=== PATIENT | male | born 1970 | race Caucasian/White ===

== ENCOUNTER 2020-02-26 20:03 | Emergency (ER) | payer OTHER, SELFPAY ==
[2020-02-26 20:04] VITALS: BP 115/73; PULSE 76; RESP 20; TEMP 36.9; O2SAT 98
--- NOTE | 2020-02-26 20:47 | ED.SKABFB ---
HPI - Skin/Abscess/Foreign Bdy General Chief complaint: Skin/Abscess/Foreign Body Stated complaint: lump on neck Time Seen by Provider: 02/26/20 20:26 Source: patient Mode of arrival: ambulatory Limitations: no limitations History of Present Illness HPI narrative: This is a 49 year old male that presents to the ER for redness to left side of neck noticed this afternoon. Reports an area of redness and swelling to the left side of the neck. Reports pain to the area. Denies fever or drainage. Related Data Allergies Allergy/AdvReac Type Severity Reaction Status Date / Time morphine Allergy Intermediate Other Verified 02/26/20 20:07 sulfamethoxazole Allergy Intermediate Itching Verified 02/26/20 20:07 trimethoprim Allergy Intermediate Itching Verified 02/26/20 20:07 Review of Systems Review of Systems: Narrative: CONSTITUTIONAL: Denies fever SKIN: Reports rash. Denies itching. All systems reviewed & are unremarkable except as noted in HPI and below PMFSH Past Medical History Medical History (Updated 02/26/20 @ 21:05 by Susie Romero PA-C) History of coronary artery disease History of hyperlipidemia Exam Narrative: Exam Narrative: GENERAL: Well-appearing, well-nourished, and in no acute distress. HEAD: Normocephalic, atraumatic. EYES: EOMI. NECK: Supple. No adenopathy or masses. Left side at base of neck with small (2cm circumference) raised area of erythema. No lymphangitic streaking CHEST: Clear to auscultation. No respiratory distress. No wheezes rales or rhonchi HEART: Regular rate and rhythm. No murmur heard. Normal peripheral pulses. EXTREMITIES: Normal range of motion. No edema. SKIN: Warm, dry, no rash. NEURO: No focal deficits. Alert and oriented x3. PSYCH: Normal mood and affect Course Vital Signs Vital signs: Vital Signs Temperature 98.4 F 02/26/20 20:04 Pulse Rate 76 02/26/20 20:04 Respiratory Rate 20 02/26/20 20:04 Blood Pressure 115/73 02/26/20 20:04 Pulse Oximetry 98 02/26/20 20:04 Temperature 98.4 F 02/26/20 20:04 Pulse Rate 76 02/26/20 20:04 Respiratory Rate 20 02/26/20 20:04 Blood Pressure 115/73 02/26/20 20:04 Pulse Oximetry 98 02/26/20 20:04 MDM - Skin/Abscess/Foreign Bdy MDM Narrative Medical decision making narrative: Patient presents to the ER for small area of possible cellulitis to the left side of the neck. Patient is afebrile and nontoxic-appearing. Will be started on oral antibiotics. Is to follow up with his PCP. Was given warnings to return to the ER Critical Care Time Critical Care Time Critical Care Time: No Discharge Plan Discharge Clinical Impression: Cellulitis Qualifiers: Site of cellulitis: head Qualified Code(s): L03.811 - Cellulitis of head [any part, except face] Patient Disposition: Home, Self-Care Condition: Stable Instructions: Antibiotic Form, Cellulitis (ED) Additional Instructions: Return if symptoms worsen or concerns: any increase in redness, swelling, pain, or fever over 101 Take antibiotics as directed. Clean wound with mild soapy water. Follow up with primary care doctor Prescriptions: New cephalexin 500 mg capsule 500 mg PO Q6H 7 Days Qty: 28 RF: 0 Follow-up/Referrals: Ronda Baeza MD [Physician] - 3 Days PHYSICIAN,SHIFT ENGINEER [Primary Care Provider] -
[2020-02-26 21:24] VITALS: BP 118/63; PULSE 70; RESP 19; O2SAT 99
== END 2020-02-26 21:25 | disposition home or self-care (01) ==
PROVIDERS: Emergency Provider Emergency Medicine
DX: L03.811 Cellulitis of head [any part, except face] (principal); I25.10 Atherosclerotic heart disease of native coronary artery without angina pectoris; E78.5 Hyperlipidemia, unspecified
CPT/HCPCS: 99283